=== PATIENT | female | born 1950 | race African-American/Black ===

== ENCOUNTER → 2016-07-27 | Outpatient (CLI) | payer OTHER ==
[~2016-07-27] MED LIST: DULERA 200 MCG/13 GM; DULERA 200 MCG/13 GM IH; FERROUS SULFAT325 MG PO; FUROSEMIDE 40 M40 M1 PO; PAXIL10 MG; POTASSIUM20 PO; PROTONIX40 M1 PO; SPIRIVA INH; VENTOLIN HFA INH8 GM INH
[2016-07-27 15:40] VITALS: BP 125/71
[2016-07-27 16:50] VITALS: BP 142/77
== END ==
LOC: OPONC 06:25
DX: D50.9 Iron deficiency anemia, unspecified (principal)
CPT/HCPCS: 95000

== ENCOUNTER → 2016-08-01 | Outpatient (CLI) | payer OTHER ==
[2016-08-01 15:28] VITALS: BP 127/67
[2016-08-01 16:10] VITALS: BP 124/60
== END ==
LOC: OPONC 09:35
DX: D50.9 Iron deficiency anemia, unspecified (principal)
CPT/HCPCS: 95000

== ENCOUNTER → 2016-08-04 | Outpatient (CLI) | payer OTHER ==
[2016-08-04 13:20] VITALS: BP 142/64
[2016-08-04 15:05] VITALS: BP 140/62
== END ==
LOC: OPONC 08:23
DX: D50.9 Iron deficiency anemia, unspecified (principal)
CPT/HCPCS: 95000